=== PATIENT | male | born 1995 | race Caucasian/White ===

== ENCOUNTER 2021-01-11 16:44 | Emergency (ER) | payer SELFPAY ==
[~2021-01-11] VITALS: Ht 198.1 cm; Wt 113.6 kg
[2021-01-11 16:48] VITALS: TEMP 99.2
[2021-01-11 17:10] LABS: BASO # 0.1 (0.0-0.2); BASO % 0.5 % (0.0-2.0); EOS # 0.1 (0.0-0.7); EOS % 0.6 % (0-4.0); GRAN # 5.6 (1.4-6.5); HEMATOCRIT 46.2 % (42.0-52.0); HEMOGLOBIN 15.6 g/dl (13.5-18.0); LYMPH # 3.4 (1.2-3.4); LYMPH % 34.2 % (20.0-51.0); MEAN CELL VOLUME 85 fl (80.0-100.0); MEAN CORPUSCULAR HEMOGLOBIN 29 pg (27.0-31.0); MEAN CORPUSCULAR HGB CONC 34 g/dl (33.0-37.0); MEAN PLATELET VOLUME 9.5 fl (7.4-10.4); MONO # 0.8 (0.1-0.6); MONO % 8.3 % (1.7-9.3); PLATELET COUNT 229 K/mm3 (130-400); RED BLOOD COUNT 5.41 M/mm3 (4.20-5.60); REDCELL DISTRIBUTION WIDTH-CV 12.2 % (11.5-14.5)
[2021-01-11 17:19] LABS: ALANINE AMINOTRANSFERASE 16 U/L (4-49); ALBUMIN 4.5 gm/dL (3.5-5.0); ALKALINE PHOSPHATASE 73 U/L (50-136); ANION GAP 14 mmol/L (7-16); AST,SGOT 23 U/L (15-37); BILIRUBIN,TOTAL 0.7 mg/dL (0.0-1.0); BLOOD UREA NITROGEN 13 mg/dL (9-20); CALCIUM 8.9 mg/dL (8.4-10.2); CARBON DIOXIDE 20 mmol/L (22-30); CHLORIDE 101 mmol/L (98-107); CREATININE, serum 1.03 (0.66-1.25); GLUCOSE 211 mg/dL (74-106); SODIUM 135 mmol/L (137-145); TOTAL PROTEIN 7.9 gm/dL (6.4-8.2)
[2021-01-11 17:20] LABS: ALCOHOL(ethanol),MEDICAL < 10 mg/dL
[2021-01-11 17:21] LABS: POTASSIUM 2.9 mmol/L (3.4-5.0)
[2021-01-11 18:12] LABS: TRICYCLIC ANTIDEPRESS URINE NEGATIVE
[2021-01-11 18:54] VITALS: BP 131/74; PULSE 84
== END 2021-01-11 18:54 | disposition home or self-care (01) ==
LOC: COL.ER 16:44
PROVIDERS: Nurse Practitioner
DX: F41.9 Anxiety disorder, unspecified (principal); E87.6 Hypokalemia
CPT/HCPCS: J2060; J7030